=== PATIENT | female | born 1960 | race Caucasian/White ===

== ENCOUNTER → 2016-11-22 | Outpatient (CLI) | payer BC, MEDICARE ==
[2016-01-28 09:30] VITALS: BP 143/67
[~2016-11-22] MED LIST: DOXY100T PO; FLUT1DIS5 IH; NYST1000 PO; OMEP40CA5 PO; PROVENTIL HFA6.7 GM IH
--- NOTE | 2016-11-22 13:05 | RAD ---
CT chest without IV contrast . History: Abnormal chest radiograph. Comparison: None. Technique: Helical CT of the chest was performed without intravenous contrast. Axial, sagittal, and coronal reconstructions were obtained. One or more of the following individualized dose reduction techniques were utilized for the study: Automated exposure control Adjustment of mA and/or kV according to patient's size Use of iterative reconstruction technique. Findings: Visualized thyroid is symmetric. Trachea and mainstem bronchi appear patent. No mediastinal lymphadenopathy is seen. Thoracic aortic atherosclerosis is present. Thoracic aorta has normal caliber. Coronary artery calcifications are present. Heart and pericardium are unremarkable. Moderate emphysematous changes of lungs are seen, most evident in the upper lobes. No pneumothorax or pleural effusion is identified. No pulmonary masses are seen. Incidental 2 mm soft tissue pulmonary nodule is seen in the right middle lobe (axial image 40). Impression: 1. Moderate emphysema. 2. Incidental, nonspecific 2 mm soft tissue pulmonary nodule. Recommend follow-up chest CT without contrast in 12 months.
== END | disposition home or self-care (01) ==
LOC: CT 14:39
PROVIDERS: ATTEND Internal Medicine Pulmonary Disease
DX: R91.8 Other nonspecific abnormal finding of lung field (principal)
CPT/HCPCS: 71250

== ENCOUNTER 2017-12-07 21:56 | Emergency (ER) | payer BC, MEDICARE ==
[2017-12-07] MEDS ORDERED: ADENOSINE 6 MG/2 ML VIAL. IV (22:01)
[2017-12-07] MEDS: ADENOSINE 6 MG/2 ML VIAL. IV (22:05)
[2017-12-07] MEDS: IV NORMAL SALINE 1000ML BAG 1,000 ML IV (22:08)
[2017-12-07 22:17] LABS: ADD MAN DIFF? NO
[2017-12-07 22:25] LABS: BASO # 0.1 x10^3/uL (0.0-0.2); BASO % 1 % (0-3); EOS # 0.2 x10^3/uL (0.0-0.7); EOS % 2 % (0-3); HEMATOCRIT 46.3 % (36.0-47.0); LYMPH # 3.3 x10^3/uL (1.0-4.8); LYMPH % 38 % (24-48); MEAN CORPUSCULAR HEMOGLOBIN 32 pg (25-35); MEAN CORPUSCULAR HGB CONC 35 g/dL (31-37); MEAN CORPUSCULAR VOLUME 92 fL (79-100); MONO # 0.5 x10^3/uL (0.0-1.1); MONO % 5 % (0-9); NEUT # 4.8 x10^3uL (1.8-7.7); NEUT % 55 % (31-73); PLATELET COUNT 231 x10^3/uL (140-400); RED BLOOD COUNT 5.01 x10^6/uL (3.50-5.40); RED CELL DISTRIBUTION WIDTH 13.8 % (11.5-14.5); WHITE BLOOD COUNT 8.9 x10^3/uL (4.0-11.0)
[2017-12-07 22:28] LABS: ANION GAP 6 (6-14); BLOOD UREA NITROGEN 21 mg/dL (7-20); BUN/CREATININE RATIO 18 (6-20); CALCIUM 9.3 mg/dL (8.5-10.1); CARBON DIOXIDE 31 mmol/L (21-32); CHLORIDE 103 mmol/L (98-107); CREATININE 1.2 mg/dL (0.6-1.0); GFR 46.3; GLUCOSE 130 mg/dL (70-99); POTASSIUM 3.8 mmol/L (3.5-5.1); SODIUM 140 mmol/L (136-145)
[2017-12-07 22:33] LABS: ALBUMIN 3.7 g/dL (3.4-5.0); ALBUMIN/GLOBULIN RATIO 0.8 (1.0-1.7); ALK PHOS 140 U/L (46-116); ALT (SGPT) 24 U/L (14-59); AST (SGOT) 18 U/L (15-37); TOTAL BILIRUBIN 0.3 mg/dL (0.2-1.0); TOTAL PROTEIN 8.1 g/dL (6.4-8.2)
[2017-12-07 22:35] LABS: TROPONINI 0.036 ng/mL (0.000-0.055)
[2017-12-07] MEDS ORDERED: CONTRAST GIVEN MC (22:45)
[2017-12-07] MEDS: IOHEXOL 300 MG/ML 100ML VIAL. IV (23:01)
== END 2017-12-08 00:49 | disposition home or self-care (01) ==
LOC: ER 12-08 00:49
DX: I47.1 Supraventricular tachycardia (principal); Z88.1 Allergy status to other antibiotic agents; Z88.8 Allergy status to other drugs, medicaments and biological substances
CPT/HCPCS: 36415; 71045; 71275; 80053; 84484; 85025; 93005; 96361; 96374; 99285-25; J0153; J7030; Q9967

== ENCOUNTER 2018-08-21 09:12 | Emergency (ER) | payer BC, MEDICARE ==
[~2018-08-21] VITALS: Ht 167.6 cm; Wt 70.8 kg
[~2018-08-21 09:12] MED LIST changes: +ALBU2.5V8 IH; -NYST1000 PO; +NYST100054 PO; -PROVENTIL HFA6.7 GM IH
--- NOTE | 2018-08-21 09:27 | PHYS DOC ---
Past Medical History Past Medical History: Anxiety, GERD, High Cholesterol, Hypertension, IBS Additional Past Medical Histor: CHRONIC BACK PAIN Past Surgical History: Cholecystectomy, Hysterectomy, Tonsillectomy Additional Past Surgical Histo: adnoidestomy, discectomy in L-5 Alcohol Use: None Drug Use: None Adult General Chief Complaint Chief Complaint: SHORTNESS OF BREATH HPI HPI Patient is a 57 year old female presented to ER today for evaluation of difficulty swallowing, difficulty breathing since this morning after she swallowed nystatin liquid solution for oral thrush. She has history of oral thrust in the past, her doctor prescribed nystatin liquid solution as needed. This morning she woke up, noticed thrust in the back of her throat so she swallowed her prescribed nystatin solution, afterward, she feels like her windpipe is shut, having trouble swallowing and trouble catching her breath. Patient has used nystatin solution before without any problem. Patient denied any chest pain, no cough, no fever. Patient has history of COPD, ON OXYGEN AT HOME ALL TIME. Review of Systems Review of Systems Constitutional: Denies fever or chills [] Eyes: Denies change in visual acuity, redness, or eye pain [] HENT: Denies nasal congestion or sore throat [] Respiratory: Denies cough or shortness of breath [] Cardiovascular: No additional information not addressed in HPI [] GI: Denies abdominal pain, nausea, vomiting, bloody stools or diarrhea [] : Denies dysuria or hematuria [] Musculoskeletal: Denies back pain or joint pain [] Integument: Denies rash or skin lesions [] Neurologic: Denies headache, focal weakness or sensory changes [] Endocrine: Denies polyuria or polydipsia [] All other systems were reviewed and found to be within normal limits, except as documented in this note. Current Medications Current Medications Current Medications Medications (Trade) Dose Ordered Sig/Brett Start Time Stop Time Status Last Admin Dose Admin Diphenhydramine HCl (Benadryl) 25 mg 1X ONCE 08/21/18 09:30 08/21/18 09:31 DC 08/21/18 09:51 25 MG Famotidine (Pepcid Vial) 20 mg 1X ONCE 08/21/18 09:30 08/21/18 09:31 DC 08/21/18 09:51 20 MG Methylprednisolone Sodium Succinate (SOLU-Medrol 125MG VIAL) 125 mg 1X ONCE 08/21/18 09:30 08/21/18 09:31 DC 08/21/18 09:51 125 MG Allergies Allergies Allergies Coded Allergies Type Severity Reaction Last Updated Verified cephalexin Allergy Severe Rash 04/20/15 No Cephalosporins Allergy Unknown 12/08/17 Yes escitalopram Allergy Unknown 12/08/17 Yes sertraline Allergy Unknown 12/08/17 Yes Physical Exam Physical Exam Constitutional: Well developed, well nourished, no acute distress, non-toxic appearance. [] HENT: Normocephalic, atraumatic, bilateral external ears normal, oropharynx moist, no oral exudates, nose normal. THERE IS NO ORAL THRUSH. There is clear postnasal drip. Eyes: PERRLA, EOMI, conjunctiva normal, no discharge. [] Neck: Normal range of motion, no tenderness, supple, no stridor. [] Cardiovascular:Heart rate regular rhythm, no murmur [] Lungs & Thorax: Bilateral breath sounds clear to auscultation [] Abdomen: Bowel sounds normal, soft, no tenderness, no masses, no pulsatile masses. [] Skin: Warm, dry, no erythema, no rash. [] Back: No tenderness, no CVA tenderness. [] Extremities: No tenderness, no cyanosis, no clubbing, ROM intact, no edema. [] Neurologic: Alert and oriented X 3, normal motor function, normal sensory function, no focal deficits noted. [] Psychologic: Affect normal, judgement normal, mood normal. [] Current Patient Data Vital Signs Vital Signs Date Time Temp Pulse Resp B/P (MAP) Pulse Ox O2 Delivery O2 Flow Rate FiO2 08/21/18 09:15 98.5 99 20 137/75 (95) 92 Nasal Cannula 3.0 98.5 EKG EKG [] Radiology/Procedures Radiology/Procedures [] Course & Med Decision Making Course & Med Decision Making Pertinent Labs and Imaging studies reviewed. (See chart for details) Patient felt much better now. Dragon Disclaimer Dragon Disclaimer This electronic medical record was generated, in whole or in part, using a voice recognition dictation system. Departure Departure Impression: Primary Impression: Post-nasal drainage Referrals: ROMULO JORDAN MD (PCP) Patient Instructions: Allergic Rhinitis Scripts Fluticasone Propionate (Flonase Allergy Relief) 9.9 Ml Haigler.susp 2 SPRAYS NS DAILY, #1 BOTTLE Prov: HUBER FRANCO DO 08/21/18 HUBER FRANCO DO Aug 21, 2018 09:27
[2018-08-21] MEDS ORDERED: methylPREDNISolone SOD SUCC PF 125 MG/2 ML VIAL. IV ONE (09:30)
[2018-08-21] MEDS ORDERED: FAMOTIDINE 20 MG/2 ML VIAL IVP ONE (09:30)
[2018-08-21] MEDS ORDERED: diphenhydrAMINE 50 MG/ML VIAL IVP ONE (09:30)
[2018-08-21] MEDS ORDERED: FLUT9.9S NS (11:24)
[2018-08-21 11:29] VITALS: BP 143/71
== END 2018-08-21 12:12 | disposition home or self-care (01) ==
LOC: ER 09:12
DX: R09.82 Postnasal drip (principal); R13.10 Dysphagia, unspecified; R06.00 Dyspnea, unspecified; F41.9 Anxiety disorder, unspecified; K21.9 Gastro-esophageal reflux disease without esophagitis; E78.00 Pure hypercholesterolemia, unspecified; I10 Essential (primary) hypertension; G89.29 Other chronic pain; J44.9 Chronic obstructive pulmonary disease, unspecified; Z90.710 Acquired absence of both cervix and uterus; Z90.89 Acquired absence of other organs; Z88.1 Allergy status to other antibiotic agents; Z88.8 Allergy status to other drugs, medicaments and biological substances
CPT/HCPCS: 96374; 96375; 99284; J1200; J2930; J3490

== ENCOUNTER 2019-08-30 17:47 | Inpatient (IN) | payer BC, MEDICARE ==
[~2019-08-30] VITALS: Ht 166.4 cm; Wt 73.1 kg
[~2019-08-30 17:47] MED LIST changes: -ALBU2.5V8 IH; +FLUT9.9S NS; +OMEP40CA45 PO; -OMEP40CA5 PO; +PROVENTIL HFA6.7 GM IH
[2019-08-30 19:00] LABS: BASO % 0 % (0-3); EOS # 0.1 x10^3/uL (0.0-0.7); EOS % 1 % (0-3); HEMATOCRIT 42.9 % (36.0-47.0); HEMOGLOBIN 14.5 g/dL (12.0-15.5); LYMPH # 0.5 x10^3/uL (1.0-4.8); LYMPH % 9 % (24-48); MEAN CORPUSCULAR HEMOGLOBIN 31 pg (25-35); MEAN CORPUSCULAR HGB CONC 34 g/dL (31-37); MEAN CORPUSCULAR VOLUME 92 fL (79-100); MONO # 0.2 x10^3/uL (0.0-1.1); MONO % 3 % (0-9); NEUT # 4.6 x10^3/uL (1.8-7.7); NEUT % 87 % (31-73); PLATELET COUNT 164 x10^3/uL (140-400); RED BLOOD COUNT 4.68 x10^6/uL (3.50-5.40); RED CELL DISTRIBUTION WIDTH 13.3 % (11.5-14.5); WHITE BLOOD COUNT 5.3 x10^3/uL (4.0-11.0)
[2019-08-30] MEDS ORDERED: ONDANSETRON PF 4 MG/2 ML VIAL. IVP ONE (19:00)
[2019-08-30] MEDS ORDERED: IV NORMAL SALINE 1000ML BAG 1,000 ML IV ONE (19:00)
[2019-08-30] MEDS ORDERED: MORPHINE SULFATE 4 MG/ML VIAL. IV ONE (19:00)
--- NOTE | 2019-08-30 19:04 | PHYS DOC ---
Past Medical History Past Medical History: Anxiety, COPD, GERD, High Cholesterol, Hypertension, IBS, Other Additional Past Medical Histor: CHRONIC BACK PAIN,SVT Past Surgical History: Cholecystectomy, Hysterectomy, Tonsillectomy, Other Additional Past Surgical Histo: adnoidestomy, discectomy in L-5 Alcohol Use: None Drug Use: None Adult General Chief Complaint Chief Complaint: NAUSEA/VOMITING/DIARRHA HPI HPI Patient is a 58 year old female with history of COPD who presents with multiple medical complaints. Patient reports nausea, vomiting with watery diarrhea, abdominal cramping and subjective fever starting earlier today. Denies dizziness lightheadedness. Reports posterior headache soft or vomiting. Vomit is non- bloody nonbilious and contains stomach contents. Diarrhea is watery without blood. Abdominal pain is cramping, migratory waxes and wanes. Patient unable to keep fluids or medications down. No recent antibiotics as treated C. difficile. Reports recent GI illness exposure to grandchildren last week.. No other acute symptoms or complaints.] Review of Systems Review of Systems Review symptoms as per history of present illness. All other review symptoms are negative. All other systems were reviewed and found to be within normal limits, except as documented in this note. Current Medications Current Medications Current Medications Medications (Trade) Dose Ordered Sig/Brett Start Time Stop Time Status Last Admin Dose Admin Morphine Sulfate (Morphine Sulfate) 4 mg 1X ONCE 08/30/19 19:00 08/30/19 19:01 DC 08/30/19 19:11 4 MG Ondansetron HCl (Zofran) 4 mg 1X ONCE 08/30/19 19:00 08/30/19 19:01 DC 08/30/19 19:10 4 MG Sodium Chloride 1,000 ml @ 1,000 mls/hr 1X ONCE 08/30/19 19:00 08/30/19 19:59 DC 08/30/19 19:07 1,000 MLS/HR Allergies Allergies Allergies Coded Allergies Type Severity Reaction Last Updated Verified cephalexin Allergy Severe Rash 04/20/15 No Cephalosporins Allergy Unknown 12/08/17 Yes escitalopram Allergy Unknown 12/08/17 Yes sertraline Allergy Unknown 12/08/17 Yes Physical Exam Physical Exam Constitutional: Well developed, well nourished, no acute distress, non-toxic appearance. [] HENT: Normocephalic, atraumatic, bilateral external ears normal, oropharynx moist, no oral exudates, nose normal. [] Eyes: PERRLA, EOMI, conjunctiva normal, no discharge. [] Neck: Normal range of motion, no tenderness, supple, no stridor. [] Cardiovascular:Heart rate regular rhythm, no murmur [] Lungs & Thorax: Bilateral breath sounds clear to auscultation [] Abdomen: Bowel sounds normal, soft, no tenderness, no masses, no pulsatile masses. [] Skin: Warm, dry, no erythema, no rash. [] Back: No tenderness, no CVA tenderness. [] Extremities: No tenderness, no cyanosis, no clubbing, ROM intact, no edema. [] Neurologic: Alert and oriented X 3, normal motor function, normal sensory function, no focal deficits noted. [] Psychologic: Affect normal, judgement normal, mood normal. [] Current Patient Data Vital Signs Vital Signs Date Time Temp Pulse Resp B/P (MAP) Pulse Ox O2 Delivery O2 Flow Rate FiO2 08/30/19 19:46 16 95 Nasal Cannula 2.0 08/30/19 19:07 100.0 104 139/74 (95) 100.0 Lab Values Laboratory Tests Test 08/30/19 18:45 White Blood Count 5.3 x10^3/uL (4.0-11.0) Red Blood Count 4.68 x10^6/uL (3.50-5.40) Hemoglobin 14.5 g/dL (12.0-15.5) Hematocrit 42.9 % (36.0-47.0) Mean Corpuscular Volume 92 fL (79-100) Mean Corpuscular Hemoglobin 31 pg (25-35) Mean Corpuscular Hemoglobin Concent 34 g/dL (31-37) Red Cell Distribution Width 13.3 % (11.5-14.5) Platelet Count 164 x10^3/uL (140-400) Neutrophils (%) (Auto) 87 % (31-73) H Lymphocytes (%) (Auto) 9 % (24-48) L Monocytes (%) (Auto) 3 % (0-9) Eosinophils (%) (Auto) 1 % (0-3) Basophils (%) (Auto) 0 % (0-3) Neutrophils # (Auto) 4.6 x10^3/uL (1.8-7.7) Lymphocytes # (Auto) 0.5 x10^3/uL (1.0-4.8) L Monocytes # (Auto) 0.2 x10^3/uL (0.0-1.1) Eosinophils # (Auto) 0.1 x10^3/uL (0.0-0.7) Basophils # (Auto) 0.0 x10^3/uL (0.0-0.2) Segmented Neutrophils % 83 % (35-66) H Band Neutrophils % 2 % (0-9) Lymphocytes % 9 % (24-48) L Monocytes % 4 % (0-10) Eosinophils % 2 % (0-5) Platelet Estimate Adequate (ADEQUATE) Sodium Level 136 mmol/L (136-145) Potassium Level 4.4 mmol/L (3.5-5.1) Chloride Level 98 mmol/L (98-107) Carbon Dioxide Level 30 mmol/L (21-32) Anion Gap 8 (6-14) Blood Urea Nitrogen 18 mg/dL (7-20) Creatinine 0.9 mg/dL (0.6-1.0) Estimated GFR (Cockcroft-Gault) 64.3 BUN/Creatinine Ratio 20 (6-20) Glucose Level 113 mg/dL (70-99) H Calcium Level 8.7 mg/dL (8.5-10.1) Total Bilirubin 0.4 mg/dL (0.2-1.0) Aspartate Amino Transferase (AST) 17 U/L (15-37) Alanine Aminotransferase (ALT) 15 U/L (14-59) Alkaline Phosphatase 126 U/L (46-116) H Total Protein 7.4 g/dL (6.4-8.2) Albumin 3.8 g/dL (3.4-5.0) Albumin/Globulin Ratio 1.1 (1.0-1.7) Lipase 95 U/L (73-393) Laboratory Tests 08/30/19 18:45 Laboratory Tests 08/30/19 18:45 EKG EKG [ekg: REVIEWED] Radiology/Procedures Radiology/Procedures CT abdomen/pelvis: ] Course & Med Decision Making Course & Med Decision Making Pertinent Labs and Imaging studies reviewed. (See chart for details) [Labs, reviewed. IV fluids and antiemetics given with limited improvement. Amanda ent remains nauseated with cramping abdominal pain. Will admit to the hospital service for further evaluation and treatment] Luis Disclaimer Dragon Disclaimer This electronic medical record was generated, in whole or in part, using a voice recognition dictation system. Departure Departure Impression: Primary Impression: Abdominal pain Additional Impression: Vomiting and diarrhea Disposition: ADMITTED INPATIENT Condition: STABLE Referrals: ROMULO JORDAN MD (PCP) Problem Qualifiers AHMET DEJESUS DO Aug 30, 2019 19:04
[2019-08-30 19:13] LABS: CALCIUM 8.7 mg/dL (8.5-10.1); CREATININE 0.9 mg/dL (0.6-1.0); GFR 64.3; POTASSIUM 4.4 mmol/L (3.5-5.1)
[2019-08-30 19:17] LABS: ALBUMIN 3.8 g/dL (3.4-5.0); ALBUMIN/GLOBULIN RATIO 1.1 (1.0-1.7); TOTAL BILIRUBIN 0.4 mg/dL (0.2-1.0); TOTAL PROTEIN 7.4 g/dL (6.4-8.2)
[2019-08-30 19:32] LABS: % BANDS 2 % (0-9); % EOS 2 % (0-5); % LYMPHS 9 % (24-48); % MONOS 4 % (0-10); % SEGS 83 % (35-66); PLT ESTIMATE ADEQUATE (ADEQUATE)
[2019-08-30] MEDS ORDERED: CONTRAST GIVEN. MC PRN (21:00)
[2019-08-30] MEDS ORDERED: MORPHINE SULFATE 2 MG/ML VIAL. IV PRN (21:00)
[2019-08-30] MEDS ORDERED: ONDANSETRON PF 4 MG/2 ML VIAL. IV PRN (21:00)
[2019-08-30] MEDS ORDERED: IOHEXOL 300 MG/ML 100ML VIAL. IV ONE (21:00)
--- NOTE | 2019-08-30 21:24 | RAD ---
Exam: CT abdomen and pelvis with contrast INDICATION: Abdominal pain TECHNIQUE: Sequential axial images through the abdomen and pelvis obtained following the administration of 75 mL of Omni 300 IV contrast. Sagittal and coronal reformatted images were reconstructed from the axial data and reviewed. Comparisons: None FINDINGS: Heart size is normal. No pericardial visualized lung bases are clear. No pleural effusion. Liver, spleen, pancreas, adrenals are unremarkable. Gallbladder surgically absent. Kidneys demonstrate symmetric enhancement. No perinephric inflammation or hydronephrosis. No renal or ureteral calculi are identified. Bladder is distended and appears thin-walled. Uterus is absent. No abnormal adnexal mass Few scattered diverticula are noted descending and sigmoid colon. Small bowel is unremarkable. Appendix is identified. No free intra-abdominal air or fluid. No obstruction. Abdominal aorta has a normal course and caliber. Abdominal vasculature is patent. No enlarged abdominal or fluid. No suspicious osseous lesions or acute fractures. IMPRESSION: 1. Diverticulosis without evidence of acute diverticulitis. 2. No acute process identified within the abdomen or pelvis. Exposure: One or more of the following in the visualized dose reduction techniques were utilized for this examination: 1. Automated exposure control 2. Adjustment of the MA and/or KV according to patient size 3. Use of iterative of reconstructive technique Electronically signed by: Conrad Negron MD (08/30/2019 9:21 PM) [facility]
[2019-08-30] MEDS: IV NORMAL SALINE 1000ML BAG 1,000 ML IV SCH (21:41)
[2019-08-30 21:51] LABS: BILIRUBIN,URINE NEGATIVE (NEG); COLOR,URINE YELLOW; NITRITE,URINE NEGATIVE (NEG); PROTEIN,URINE NEGATIVE (NEG-TRACE); UROBILINOGEN,URINE 0.2 mg/dL (0.2 mg/dL)
[2019-08-30 21:56] LABS: CLARITY,URINE CLEAR
[2019-08-30 22:12] LABS: BACTERIA,URINE 0 /HPF (0-FEW); RBC,URINE 0 /HPF (0-2); SQUAMOUS EPITHELIAL CELL,UR FEW /LPF; WBC,URINE RARE /HPF (0-4)
[2019-08-30] MEDS ORDERED: IPRA3AMP29 INH (22:47)
[2019-08-30 23:00] VITALS: BP 140/68
[2019-08-30] MEDS: IPRATRPIUM/ALBUTEROL 0.5/2.5MG 3 ML NEBU. INH SCH (23:33)
[2019-08-31] MEDS ORDERED: VERAPAMIL HCL 120 MG PO (02:01)
[2019-08-31] MEDS ORDERED: CELE200C PO (02:01)
[2019-08-31] MEDS ORDERED: ATOR20TA58 PO (02:01)
[2019-08-31] MEDS ORDERED: GUAI12003 PO (02:03)
[2019-08-31] MEDS ORDERED: DIAZ5TAB4 PO (02:03)
[2019-08-31 03:00] VITALS: BP 131/62
[2019-08-31 04:22] LABS: BASO % 1 % (0-3); EOS % 1 % (0-3); HEMATOCRIT 37.4 % (36.0-47.0); HEMOGLOBIN 12.6 g/dL (12.0-15.5); LYMPH # 0.7 x10^3/uL (1.0-4.8); LYMPH % 24 % (24-48); MEAN CORPUSCULAR HEMOGLOBIN 31 pg (25-35); MEAN CORPUSCULAR HGB CONC 34 g/dL (31-37); MEAN CORPUSCULAR VOLUME 92 fL (79-100); MONO # 0.2 x10^3/uL (0.0-1.1); MONO % 6 % (0-9); NEUT # 2.1 x10^3/uL (1.8-7.7); NEUT % 69 % (31-73); PLATELET COUNT 141 x10^3/uL (140-400); RED BLOOD COUNT 4.07 x10^6/uL (3.50-5.40); RED CELL DISTRIBUTION WIDTH 13.2 % (11.5-14.5); WHITE BLOOD COUNT 3.1 x10^3/uL (4.0-11.0)
[2019-08-31 04:41] LABS: CALCIUM 8.1 mg/dL (8.5-10.1); CREATININE 0.8 mg/dL (0.6-1.0); GFR 73.7; POTASSIUM 4.1 mmol/L (3.5-5.1); TOTAL BILIRUBIN 0.3 mg/dL (0.2-1.0)
[2019-08-31] MEDS: IV NORMAL SALINE 1000ML BAG 1,000 ML IV SCH ×2 (05:40→12:50)
[2019-08-31 07:00] VITALS: BP 110/52
[2019-08-31] MEDS: IPRATRPIUM/ALBUTEROL 0.5/2.5MG 3 ML NEBU. INH SCH ×2 (07:37→11:20)
--- NOTE | 2019-08-31 08:53 | EKG ---
[facility] [address] [place] [address] Test Date: 2019-08-30 Test Time: 20:10:11 Pat Name: LIVIA BARBOSA Department: Room: 440 1 Gender: F After School Program Coordinator: : 1960 Requested By: PAM LOUIE Order Number: [id number] Reading MD: Measurements Intervals [place] Rate: 82 P: 69 MT: 158 QRS: 79 QRSD: 84 T: 81 QT: 374 QTc: 440 Interpretive Statements SINUS RHYTHM NORMAL ECG No previous ECG available for comparison
[2019-08-31] MEDS ORDERED: diazePAM 5 MG TABLET PO PRN (10:00)
[2019-08-31] MEDS ORDERED: CELECOXIB 100 MG CAPSULE. PO SCH (10:00)
[2019-08-31] MEDS ORDERED: PANTOPRAZOLE 40 MG TABLET.DR. PO SCH (10:30)
[2019-08-31 11:00] VITALS: BP 104/50
[2019-08-31] MEDS ORDERED: BUDESONIDE 0.5 MG/2 ML NEBU. NEB SCH (12:00)
--- NOTE | 2019-08-31 12:32 | NUR ---
SW following. Discussed with RN, pt is from home. RN advised no SW needs, anticipate discharge home with self care. SW will continue to follow.
--- NOTE | 2019-08-31 13:46 | SSS ---
ADMIT DATE: 08/31/2019 CHIEF COMPLAINT: Abdominal pain. DISCHARGE DIAGNOSES: Resolving gastroenteritis. HOSPITAL COURSE: The patient is a pleasant 58-year-old female who presented with gastroenteritis. The patient presented to the ER for evaluation. We admitted her with IV fluids and p.r.n. antiemetics. This morning, she is being examined on the medical floor where she is requesting discharge and food. PAST MEDICAL HISTORY: Hypertension. ALLERGIES: None. FAMILY HISTORY: Diabetes. SOCIAL HISTORY: She does not drink, smoke or take drugs. MEDICATIONS: Reviewed, please refer to the MRAD. REVIEW OF SYSTEMS: GENERAL: No history of weight change, weakness or fevers. SKIN: No bruising, hair changes or rashes. EYES: No blurred, double or loss of vision. NOSE AND THROAT: No history of nosebleeds, hoarseness or sore throat. HEART: No history of palpitations, chest pain or shortness of breath on exertion. LUNGS: Denies cough, hemoptysis, wheezing or shortness of breath. GASTROINTESTINAL: Denies changes in appetite, nausea, vomiting, diarrhea or constipation. GENITOURINARY: No history of frequency, urgency, hesitancy or nocturia. NEUROLOGIC: Denies history of numbness, tingling, tremor or weakness. PSYCHIATRIC: No history of panic, anxiety or depression. ENDOCRINE: No history of heat or cold intolerance, polyuria or polydipsia. EXTREMITIES: Denies muscle weakness, joint pain, pain on walking or stiffness. PHYSICAL EXAMINATION: VITALS: Within normal limits and are stable. GENERAL: No apparent distress. Alert and oriented. HEENT: Normal cephalic atraumatic, external auditory canals are patent EYES: Extraocular muscles are intact, pupils are equally round and reactive to light and accommodation MUSCULOSKELETAL: Well developed, well nourished, good range of motion ENDOCRINE: No thyromegaly was palpated LYMPHATICS: No cervical chain or axillary nodes were noted HEMATOPOIETIC: No bruising NECK: Supple, no JVD, no thyromegaly was noted. LUNGS: Clear to auscultation in all lung mccoy without rhonchi or wheezing. HEART: RRR, S1, S2 present. Peripheral pulses intact, no obvious murmurs were noted. ABDOMEN: Soft, nontender. Positive bowel sounds no organomegaly, normal bowel sounds. EXTREMITIES: Without any cyanosis, clubbing, or edema. Pedal pulses intact, Homans sign is negative. NEUROLOGIC: Normal speech, normal tone. A and O x3, moves all extremities, no obvious focal deficits. PSYCHIATRIC: Normal affect, normal mood. Stable. SKIN: No ulcerations or rashes, good skin turgor, no jaundice. VASCULAR: Good capillary refill, neurovascular bundle appears to be intact.. ASSESSMENT AND PLAN: Resolving gastroenteritis. We will discharge if she tolerates her diet. DISPOSITION: Home. ACTIVITY: As tolerated. DIET: Low sodium. MEDICATIONS: Please see the MRAD. I did discuss the case with case management and her nurse. JACOBL Gilma LOUIE DO DR: KAREN/chris JOB#: [id number] / [id number]
--- NOTE | 2019-08-31 14:37 | NUR ---
Discharge Note: LIVIA BARBOSA BINGER Discharge instructions and discharge home medications reviewed with Patient and a copy given. All questions have been answered and understanding verbalized. The following instructions and handouts were given: IBS for prior history Discontinued IV line. Patient discharged home with with all personal belongings.
[2019-08-31] MEDS ORDERED: ATORVASTATIN CALCIUM 20 MG TABLET PO SCH (21:00)
== END 2019-08-31 14:37 | disposition home or self-care (01) | DRG 392 ==
LOC: ER 17:47 → 4 NORTH 20:45
PROVIDERS: ADMIT Internal Medicine; ATTEND Internal Medicine
DX: K52.9 Noninfective gastroenteritis and colitis, unspecified (principal); F41.9 Anxiety disorder, unspecified; G89.29 Other chronic pain; K21.9 Gastro-esophageal reflux disease without esophagitis; J44.9 Chronic obstructive pulmonary disease, unspecified; E78.00 Pure hypercholesterolemia, unspecified; I10 Essential (primary) hypertension; Z90.710 Acquired absence of both cervix and uterus; Z88.8 Allergy status to other drugs, medicaments and biological substances; Z83.3 Family history of diabetes mellitus
CPT/HCPCS: 36415; 74177; 80053; 81001; 83605; 83690; 84484; 85007; 85025; 93005; 94640; 94760; J2270; J2405; J7030; J7620; J7626; Q9967; G0378

== ENCOUNTER 2021-09-30 07:48 | Emergency (ER) | payer BC, MEDICARE ==
[~2021-09-30] VITALS: Ht 165.1 cm; Wt 100.0 kg
[~2021-09-30 07:48] MED LIST changes: +ATOR20TA58 PO; +CELE200C PO; +DIAZ5TAB4 PO; +GUAI12003 PO; +IPRA3AMP29 INH; -OMEP40CA45 PO; +OMEP40CA7 PO; +VERAPAMIL HCL 120 MG PO
[2021-09-30] MEDS ORDERED: IPRATRPIUM/ALBUTEROL 0.5/2.5MG 3 ML NEBU. NEB ONE (08:30)
[2021-09-30] MEDS ORDERED: methylPREDNISolone SOD SUCC PF 125 MG/2 ML VIAL. IV ONE (08:30)
--- NOTE | 2021-09-30 08:45 | RAD ---
EXAMINATION: Chest radiograph. VIEWS: Single AP view of the chest COMPARISON: 01/28/2016 INDICATION:60 years, Female, cough, shortness of air x4 days. FINDINGS: Normal cardiomediastinal silhouette. Hyperinflated lungs with increased apical lucencies consistent w ith COPD. Bibasilar opacities. No pleural effusion or pneumothorax. No acute osseous process. IMPRESSION: Bibasilar opacities favoring multifocal pneumonia. Electronically signed by: Jaylen Arvizu DO (09/30/2021 8:42 AM) [facility]
--- NOTE | 2021-09-30 09:00 | PHYS DOC ---
Past Medical History Past Medical History: Anxiety, COPD, GERD, High Cholesterol, Hypertension, IBS, Other Additional Past Medical Histor: CHRONIC BACK PAIN,SVT Past Surgical History: Cholecystectomy, Hysterectomy, Tonsillectomy, Other Additional Past Surgical Histo: adnoidestomy, discectomy in L-5 Smoking Status: Former Smoker Alcohol Use: None Drug Use: None Adult General Chief Complaint Chief Complaint: SHORTNESS OF BREATH HPI HPI Patient is a 60 year old female presenting to the emergency department for evaluation of cough and shortness of breath that has been worsening over the past 5 to 6 days. She says that she saw her attraction attendant here at [place] and was prescribed Zithromax 3 days ago and started prednisone 2 days ago but she says that she feels that she is getting worse as she is more short of breath and her sputum is now productive of a thick yellowish sputum. No measured fevers. She wears 2 to 3 L of oxygen at home for her COPD. She tested negative for Covid 2 days ago but says she was exposed to Covid 1 month ago. She appears to be dyspneic but nontoxic with an oxygen saturation of 98% on 3 L. Review of Systems Review of Systems Constitutional: Denies fever or chills [] Eyes: Denies change in visual acuity, redness, or eye pain [] HENT: + nasal congestion. No sore throat [] Respiratory: + cough, shortness of breath [] Cardiovascular: No additional information not addressed in HPI [] GI: Denies abdominal pain, nausea, vomiting, bloody stools or diarrhea [] : Denies dysuria or hematuria [] Musculoskeletal: Denies back pain or joint pain [] Integument: Denies rash or skin lesions [] Neurologic: Denies headache, focal weakness or sensory changes [] All other systems were reviewed and found to be within normal limits, except as documented in this note. Current Medications Current Medications Current Medications Medications (Trade) Dose Ordered Sig/Brett Start Time Stop Time Status Last Admin Dose Admin Acetaminophen/ Hydrocodone Bitart (Lortab 5/325) 2 tab 1X ONCE 09/30/21 10:15 09/30/21 10:16 DC 09/30/21 10:23 2 TAB Albuterol/ Ipratropium (Duoneb) 3 ml 1X ONCE 09/30/21 08:30 09/30/21 08:31 DC 09/30/21 08:41 3 ML Benzonatate (Tessalon Perle) 100 mg 1X ONCE 09/30/21 10:15 09/30/21 10:16 DC 09/30/21 10:22 100 MG Info (CONTRAST GIVEN -- Rx MONITORING) 1 each PRN DAILY PRN 09/30/21 10:30 10/02/21 10:29 Iohexol (Omnipaque 350 Mg/ml) 80 ml 1X ONCE 09/30/21 10:30 09/30/21 10:31 DC 09/30/21 10:50 80 ML Levofloxacin/ Dextrose 150 ml @ 100 mls/hr 1X ONCE 09/30/21 10:00 09/30/21 11:29 09/30/21 10:09 100 MLS/HR Methylprednisolone Sodium Succinate (SOLU-Medrol 125MG VIAL) 125 mg 1X ONCE 09/30/21 08:30 09/30/21 08:31 DC 09/30/21 08:52 125 MG Allergies Allergies Allergies Coded Allergies Type Severity Reaction Last Updated Verified cephalexin Allergy Severe Rash 09/30/21 Yes Cephalosporins Allergy Intermediate 09/30/21 Yes escitalopram Allergy Intermediate 09/30/21 Yes sertraline Allergy Intermediate 09/30/21 Yes Physical Exam Physical Exam Constitutional: Well developed, well nourished, positive respiratory distress, non-toxic appearance. [] HENT: Normocephalic, atraumatic, bilateral external ears normal, oropharynx moist, no oral exudates, nose normal. [] Eyes: PERRLA, EOMI, conjunctiva normal, no discharge. [] Neck: Normal range of motion, no tenderness, supple, no stridor. [] Cardiovascular:Heart rate regular rhythm, no murmur [] Lungs & Thorax: Bilateral breath sounds diminished with wheezing auscultated Abdomen: Bowel sounds normal, soft, no tenderness, no masses, no pulsatile masses. [] Skin: Warm, dry, no erythema, no rash. [] Back: No tenderness, no CVA tenderness. [] Extremities: No tenderness, no cyanosis, no clubbing, ROM intact, no edema. [] Neurologic: Alert and oriented X 3, normal motor function, normal sensory function, no focal deficits noted. [] Current Patient Data Vital Signs Vital Signs Date Time Temp Pulse Resp B/P (MAP) Pulse Ox O2 Delivery O2 Flow Rate FiO2 09/30/21 10:23 38 97 Nasal Cannula 3.0 09/30/21 10:19 82 192/83 (119) 09/30/21 08:13 98.6 98.6 Lab Values Laboratory Tests Test 09/30/21 08:50 09/30/21 08:59 White Blood Count 7.2 x10^3/uL (4.0-11.0) Red Blood Count 4.21 x10^6/uL (3.50-5.40) Hemoglobin 12.4 g/dL (12.0-15.5) Hematocrit 37.2 % (36.0-47.0) Mean Corpuscular Volume 88 fL (79-100) Mean Corpuscular Hemoglobin 29 pg (25-35) Mean Corpuscular Hemoglobin Concent 33 g/dL (31-37) Red Cell Distribution Width 14.0 % (11.5-14.5) Platelet Count 262 x10^3/uL (140-400) Neutrophils (%) (Auto) 82 % (31-73) H Lymphocytes (%) (Auto) 12 % (24-48) L Monocytes (%) (Auto) 4 % (0-9) Eosinophils (%) (Auto) 1 % (0-3) Basophils (%) (Auto) 1 % (0-3) Neutrophils # (Auto) 5.9 x10^3/uL (1.8-7.7) Lymphocytes # (Auto) 0.9 x10^3/uL (1.0-4.8) L Monocytes # (Auto) 0.3 x10^3/uL (0.0-1.1) Eosinophils # (Auto) 0.1 x10^3/uL (0.0-0.7) Basophils # (Auto) 0.0 x10^3/uL (0.0-0.2) D-Dimer (Марина) 0.98 ug/mlFEU (0.00-0.50) H Sodium Level 141 mmol/L (136-145) Potassium Level 4.2 mmol/L (3.5-5.1) Chloride Level 102 mmol/L (98-107) Carbon Dioxide Level 30 mmol/L (21-32) Anion Gap 9 (6-14) Blood Urea Nitrogen 15 mg/dL (7-20) Creatinine 1.1 mg/dL (0.6-1.0) H Estimated GFR (Cockcroft-Gault) 50.7 BUN/Creatinine Ratio 14 (6-20) Glucose Level 110 mg/dL (70-99) H Calcium Level 8.5 mg/dL (8.5-10.1) Total Bilirubin 0.2 mg/dL (0.2-1.0) Aspartate Amino Transferase (AST) 19 U/L (15-37) Alanine Aminotransferase (ALT) 26 U/L (14-59) Alkaline Phosphatase 145 U/L (46-116) H Troponin I High Sensitivity 4 ng/L (4-50) WM-Trf-K-Type Natriuretic Peptide 92 pg/mL (0-124) Total Protein 7.4 g/dL (6.4-8.2) Albumin 3.6 g/dL (3.4-5.0) Albumin/Globulin Ratio 0.9 (1.0-1.7) L Influenza Type A Antigen Negative (NEGATIVE) Influenza Type B Antigen Negative (NEGATIVE) SARS-CoV-2 Antigen (Rapid) Negative (NEGATIVE) Laboratory Tests 09/30/21 08:50 Laboratory Tests 09/30/21 08:50 EKG EKG Sinus rhythm at 88 bpm with normal axis no deviation no ST elevation or depression and normal T waves Radiology/Procedures Radiology/Procedures [] Course & Med Decision Making Course & Med Decision Making Patient appears to be suffering from a COPD exacerbation and has findings of bilateral pneumonia on her chest x-ray. Patient does have a slightly elevated D-dimer and is getting a CT angiogram of her chest. Patient was told all lab and imaging finding and discussed inpatient versus outpatient treatment for her COPD exacerbation with bilateral pneumonia. Patient says she feels much better after treatment here in the emergency department and is requesting to go home. Given her oxygen saturation is 98% and she appears less dyspneic outpatient treatment is reasonable at this time. I told her she will need to finish her course of Zithromax and I will prescribe her an additional antibiotic and I discussed treatment options. She says Levaquin has been the antibiotic the Dr. De La Garza her attraction attendant use in the past with success. I told her there is concerns about combining fluoroquinolones and corticosteroids but she says she has done in the past and is aware of potential issues and is aware of the risks and accepts them. Patient was told to use her nebulizer every 4 hours and start her antibiotics and steroids follow-up with her primary care provider and/or attraction attendant within 2 to 3 days for recheck and come back to emergency department sooner with worsening pain shortness of breath or other general concerns. Patient aware and agreeable with plan and verbalized understanding of the above instructions. Dragon Disclaimer Dragon Disclaimer This electronic medical record was generated, in whole or in part, using a voice recognition dictation system. Departure Departure Impression: Primary Impression: COPD exacerbation Additional Impression: Bilateral pneumonia Disposition: 01 HOME / SELF CARE / HOMELESS Condition: IMPROVED Referrals: LANCE WILSON III, MD (PCP) Additional Instructions: Use your nebulizer every 4 hours. Scripts Prednisone (PREDNISONE) 50 Mg Tablet 1 TAB PO DAILY, #4 TAB Prov: FOUZIA ROTHMAN DO 09/30/21 Levofloxacin (LEVOFLOXACIN) 750 Mg Tablet 1 TAB PO DAILY, #7 TAB Prov: FOUZIA ROTHMAN DO 09/30/21 Problem Qualifiers Additional Impression: Bilateral pneumonia Pneumonia type: due to unspecified organism Lung location: lower lobe of lung Qualified Codes: J18.9 - Pneumonia, unspecified organism FOUZIA ROTHMAN DO Sep 30, 2021 09:00
[2021-09-30 09:26] LABS: BASO % 1 % (0-3); EOS # 0.1 x10^3/uL (0.0-0.7); EOS % 1 % (0-3); HEMATOCRIT 37.2 % (36.0-47.0); HEMOGLOBIN 12.4 g/dL (12.0-15.5); LYMPH # 0.9 x10^3/uL (1.0-4.8); LYMPH % 12 % (24-48); MEAN CORPUSCULAR HEMOGLOBIN 29 pg (25-35); MEAN CORPUSCULAR HGB CONC 33 g/dL (31-37); MEAN CORPUSCULAR VOLUME 88 fL (79-100); MONO # 0.3 x10^3/uL (0.0-1.1); MONO % 4 % (0-9); NEUT # 5.9 x10^3/uL (1.8-7.7); NEUT % 82 % (31-73); PLATELET COUNT 262 x10^3/uL (140-400); RED BLOOD COUNT 4.21 x10^6/uL (3.50-5.40); WHITE BLOOD COUNT 7.2 x10^3/uL (4.0-11.0)
[2021-09-30 09:32] LABS: CALCIUM 8.5 mg/dL (8.5-10.1); CREATININE 1.1 mg/dL (0.6-1.0); GFR 50.7; POTASSIUM 4.2 mmol/L (3.5-5.1)
[2021-09-30 09:38] LABS: INFLUENZA A PATIENT NEGATIVE (NEGATIVE); INFLUENZA B PATIENT NEGATIVE (NEGATIVE)
[2021-09-30 09:38] LABS: ALBUMIN 3.6 g/dL (3.4-5.0); ALBUMIN/GLOBULIN RATIO 0.9 (1.0-1.7); TOTAL BILIRUBIN 0.2 mg/dL (0.2-1.0); TOTAL PROTEIN 7.4 g/dL (6.4-8.2)
[2021-09-30] MEDS ORDERED: HYDROcodone/APAP 5/325MG 1 TAB TABLET PO ONE (10:15)
[2021-09-30] MEDS ORDERED: BENZONATATE 100 MG CAPSULE. PO ONE (10:15)
[2021-09-30] MEDS ORDERED: PRED50TA PO (10:17)
[2021-09-30] MEDS ORDERED: LEVO750T5 PO (10:17)
[2021-09-30] MEDS ORDERED: CONTRAST GIVEN. MC PRN (10:30)
[2021-09-30] MEDS ORDERED: IOHEXOL 350 MG/ML 100 ML VIAL. IV ONE (10:30)
--- NOTE | 2021-09-30 11:16 | RAD ---
EXAM: CT chest with contrast - pulmonary embolus protocol CLINICAL HISTORY: Reason: soa, elevated dimer COMPARISON: 11/22/2016 TECHNIQUE: CT of the chest following the administration of intravenous contrast during the pulmonary arterial phase. Axial, coronal and sagittal reformatted images were generated including MIP images. ---PQRS compliance statement - One or more of the following individualized dose reduction techniques were utilized for this study: 1. Automated exposure control 2. Adjustment of the mA and/or kV according to patient size 3. Use of iterative reconstruction technique--- FINDINGS: CHEST: Diagnostic quality: Adequate. Pulmonary emboli: None seen Right heart strain: None Pulmonary arteries: Normal in caliber. Heart is not enlarged. No pericardial effusion. Coronary calcifications are seen. No pleural effusion. No pneumothorax. Advanced emphysematous changes are seen bilaterally particularly in the upper lungs. Patchy and groundglass opacities in the lower lungs bilaterally. No mediastinal or hilar lymphadenopa thy by size criteria. Visualized Upper abdomen: Unremarkable Bones: Multilevel degenerative changes of the thoracic spine including the mid thoracic spine. Trace height loss of a few mid thoracic levels. IMPRESSION: 1. No evidence for acute pulmonary embolus. 2. Marked emphysematous changes are seen. 3. Patchy and groundglass opacities lung bases possibly atypical infectious or inflammatory process 4. Trace vertebral body height loss at a few mid thoracic levels, appears grossly stable to 11/2016 Electronically signed by: Jose G Jackson MD (09/30/2021 11:14 AM) KARLI
[2021-09-30 12:04] VITALS: BP 164/77
[2021-09-30] MEDS ORDERED: ONDANSETRON PF 4 MG/2 ML VIAL. IVP ONE (12:15)
--- NOTE | 2021-09-30 15:57 | EKG ---
[facility] [address] [place] [address] Test Date: 2021-09-30 Test Time: 09:04:31 Pat Name: LIVIA BARBOSA Department: Room: Gender: F Coke Inspector: : 1960 Requested By: FOUZIA ROTHMAN Order Number: [id number] Reading MD: Moe Stephens MD Measurements Intervals [place] Rate: 88 P: 90 PA: 144 QRS: 56 QRSD: 84 T: 71 QT: 352 QTc: 429 Interpretive Statements SINUS RHYTHM Electronically Signed On 10-01-2021 8:21:50 METHODS ANALYST by Moe Stephens MD
--- NOTE | 2021-10-01 16:25 | NUR ---
IP: Informed pt of negative covid test. Pt verbalized understanding.
== END 2021-09-30 12:20 | disposition home or self-care (01) ==
LOC: ER 07:48
DX: J18.9 Pneumonia, unspecified organism (principal); Z20.822 Contact with and (suspected) exposure to COVID-19; J44.1 Chronic obstructive pulmonary disease with (acute) exacerbation; K21.9 Gastro-esophageal reflux disease without esophagitis; E78.00 Pure hypercholesterolemia, unspecified; I10 Essential (primary) hypertension; K58.9 Irritable bowel syndrome, unspecified; G89.29 Other chronic pain; Z87.891 Personal history of nicotine dependence; Z90.710 Acquired absence of both cervix and uterus; Z90.49 Acquired absence of other specified parts of digestive tract; Z88.1 Allergy status to other antibiotic agents; Z88.8 Allergy status to other drugs, medicaments and biological substances
CPT/HCPCS: 36415; 71045; 71275; 80053; 83880; 84484; 85025; 85379; 87428; 93005; 94640; 96365; 96366; 96375; 99285; C9803; J1956; J2405; J2930; Q9967; U0003

== ENCOUNTER → 2021-12-21 | Outpatient (CLI) | payer BC, MEDICARE ==
[~2021-12-21] MED LIST changes: +LEVO750T5 PO; +PRED50TA PO
--- NOTE | 2021-12-21 15:58 | RAD ---
EXAM: CT CHEST WITHOUT [id number] LUNG SCREENING HISTORY: Smoker, lung screening. Ex-smoker, 44 pack-year smoking history. COMPARISON: 09/30/2019 and 11/22/2016 TECHNIQUE: Helical CT of the chest performed without contrast per low-dose lung screening protocol. Coronal and sagittal reformats were obtained. One or more of the following individualized dose reduction techniques were utilized for this examinat ion: 1. Automated exposure control 2. Adjustment of the mA and/or kV according to patient size 3. Use of iterative reconstruction technique. FINDINGS: There is a mildly spiculated, bilobed solid noncalcified pulmonary nodule in the right lower lobe christine suring 1.2 x 0.8 cm, previously 4 mm. Unchanged solid noncalcified 6 mm nodule in the right middle lo be (image 29, series 2). (image 149, series 2). Unchanged solid noncalcified 4 mm nodule in the right lower lobe (image 179, series 2). There is a new solid noncalcified 4 mm nodule in the left lower lo be (image 21, series 2). Unchanged 1.2 cm linear nodular opacity along bandlike opacities with elisa ectural distortion in the right upper lobe, likely scarring (image 176, series 7). Moderate centrilob ular emphysema. Mild diffuse airway wall thickening. Heart is normal size. There are coronary artery calcifications. No pericardial effusion. Thoracic aor ta is normal in caliber. Small mediastinal lymph nodes measuring up to 6 mm short axis are unchanged from 2017. No hilar or axillary lymphadenopathy. There are surgical changes of cholecystectomy. There are calcifications in the abdominal aorta. No acute osseous abnormality in the chest. IMPRESSION: 1. Suspicious solid noncalcified pulmonary nodule in the right lower lobe measuring 1.2 cm. 2. Lungs-RADS category 4B--Suspicious. 3. RECOMMENDATION: PET/CT and/or biopsy. If there is clinical concern for infectious etiology, a khushbu rt interval follow-up CT of the chest could be obtained in 1 month. 4. New 4 mm nodule in the left lower lobe. A 1.2 cm linear nodular opacity in the right upper lobe is unchanged and may be related to scarring. Additional small bilateral pulmonary nodules are unchanged . Recommend attention on PET/CT or follow-up CT. 2. Moderate emphysema. Electronically signed by: Mechelle Samayoa MD (12/21/2021 3:55 PM) [id number]
== END ==
LOC: CT 10:03
PROVIDERS: ATTEND Internal Medicine Pulmonary Disease
DX: Z12.2 Encounter for screening for malignant neoplasm of respiratory organs (principal); J43.2 Centrilobular emphysema; I70.0 Atherosclerosis of aorta; Z87.891 Personal history of nicotine dependence; Z90.49 Acquired absence of other specified parts of digestive tract
CPT/HCPCS: 71271